=== PATIENT | male | born 1960 | race Caucasian/White ===

== ENCOUNTER 2017-02-18 12:17 | Emergency (ER) | payer OTHER ==
--- NOTE | 2017-02-22 15:16 | ER ---
ADMIT: 02/18/2017 RM/LOC: ER [facility] MR#: [id number] [address] [id number] MANUELA FOWLER [address] [place] [id number] Emergency Room Report SEX: M AGE: 56 : 1960 DATE: 02/18/2017 ADDENDUM: This patient comes into the ER because he cut his right 4th and 5th digit on a saw at work. To the right 4th digit, he has a laceration that goes midway between the nail and half way into the nail bed. He also has a small avulsion fracture on the corner of the right 5th digit into the fat pad. He has good range of motion of his joints. X-ray showed a tuft fracture of the 4th digit. I did do a block to both fingers, trim the skin away on the 5th finger, which was loose, but required no stitches and to the 4th digit, I placed 4 interrupted stitches using 4-0 Monosof. Stitches are to be removed in 7 days. I wrote a prescription for Keflex. The patient was also seen by Dr. Holden. Please see my T-sheet. SHAHID August / Barry Holden MD / janet JOB #: [id number] CC: Barry Holden MD, Attending Physician Yao Silva MD, Family Physician
== END 2017-02-18 13:50 | disposition home or self-care (01) ==
LOC: ER 12:17
PROC: 0HQFXZZ Repair Right Hand Skin, External Approach (ICD-10-PCS; principal; 2017-02-18)
DX: S62.632A Displaced fracture of distal phalanx of right middle finger, initial encounter for closed fracture (principal); S62.602A Fracture of unspecified phalanx of right middle finger, initial encounter for closed fracture; S61.314A Laceration without foreign body of right ring finger with damage to nail, initial encounter; S61.316A Laceration without foreign body of right little finger with damage to nail, initial encounter; Z90.89 Acquired absence of other organs; Z87.81 Personal history of (healed) traumatic fracture; Z23 Encounter for immunization; X58.XXXA Exposure to other specified factors, initial encounter; Y92.69 Other specified industrial and construction area as the place of occurrence of the external cause